=== PATIENT | male | born 1945 | race Caucasian/White ===

== ENCOUNTER 2022-10-18 07:34 | Outpatient (CLI) | payer MEDICARE, BC, SELFPAY | END 2022-10-18 07:35 | disposition home or self-care (01) | LOC: NFLDREF 10-19 10:56 | PROVIDERS: PCP Internal Medicine; Referring Provider Internal Medicine; Visit Provider Internal Medicine | DX: E78.5 Hyperlipidemia, unspecified (principal); R73.03 Prediabetes; I10 Essential (primary) hypertension | CPT/HCPCS: 80048; 80061 ==

== ENCOUNTER 2022-12-20 12:48 | Outpatient (CLI) | payer MEDICARE, BC, SELFPAY | END 2022-12-20 12:49 | disposition home or self-care (01) | PROVIDERS: PCP Internal Medicine; Visit Provider Nurse Practitioner Family | DX: M25.561 Pain in right knee (principal); M25.461 Effusion, right knee | CPT/HCPCS: 84550; 86617 ==

== ENCOUNTER 2023-11-05 08:35 | Outpatient (CLI) | payer MEDICARE, BC, SELFPAY ==
--- OUTSIDE RECORDS SUMMARY | 2023-11-23 21:46 | XMS_ITS | Clinical Summary ---
Author Organization [email or web address] Address [place], [place] [address] Care Team Providers Care Drop Forger Helper Name Role Phone Amilcar Ralph MD Primary Care Provider Allergies No known active allergies Medications Medication Sig Dispensed Refills Start Date End Date Status multivitamin (MVI) tablet Take 1 tablet by mouth once daily. 0 07/11/2010 Active aspirin enteric coated 81 mg tablet Take 1 tablet by mouth once daily with a meal. 0 10/10/2011 Active Fish Oil-Ozark-3 Fatty Acids (OMEGA 3 FISH OIL) 684-1,200 mg capsule Take 2 capsules by mouth 3 times daily. 1000 mg TID 0 03/01/2015 Active brlhfhvt-lrmrtzbim-q examethasone (MAXITROL) 3.5mg/mL-10,000 unit/mL-0.1 % ophthalmic suspension Place 1 Drop into left eye 4 times daily. SHAKE WELL 5 mL 04/13/2016 Active prednisoLONE acetate 1% ophthalmic (ECONOPRED PLUS, PRED FORTE, OMNIPRED) suspension Begin after Mike/Poly/Dex is gone. 1 drop in left eye 4x/day x 1 wk then 3x/day x 1 wk then 2x/day x 1 wk then 1x/day x 1 wk. SHAKE WELL 10 mL 04/13/2016 Active ibuprofen (ADVIL; MOTRIN) 600 mg tablet Take 1 tablet by mouth every 6 hours if needed for Pain. Take with food. 20 tablet 04/13/2016 Active omega 6-cvv-yzr-fish oil (FISH OIL) 100-160-1,000 mg cap Take 1,000 mg by mouth. 01/18/2016 Active Active Problems Problem Noted Date Diagnosed Date Dizziness and giddiness 07/03/2011 Overview: Per patient, 2 dibilitating episodes within the last 20 years + brief vertigo with quick head movements, difficulty with pitching forward Sensorineural hearing loss, bilateral 06/29/2011 EBCT, abnormal - 06/20/10 07/11/2010 Overview: - 06/20/10:Coronary calcium score 316.9, 70th percentile -07/24/10: Stress echocardiogram, negative for ischemia. Hyperlipidemia Hypertension History of tobacco use Overview: Approximately 6 yrs, quit in 1970 Family history of ischemic heart disease Overview: Father form MS at age 68 Prostate cancer Overview: S/pa prostatectomy, 2004 Immunizations Name Administration Dates Next Due Zoster (Zostavax-ZVL, live) 03/28/2009 Family History Medical History Relation Name Comments Heart Disease Father at age 68 of MS Heart Disease Maternal Grandfather heart attack, ? age Heart Disease Maternal Uncle heart attack in his 70's Cancer Mother at age 59 lung cancer, possible primary melanoma Cancer Son 06/27 s/p H odgkin's lymphoma and ARDS Relation Name Status Comments Father Maternal Grandfather Maternal Uncle Mother Son Social History Tobacco Use Types Packs/Day Years Used Date Smoking Tobacco: Former Cigarettes Q uit: 06/17/1970 Smokeless Tobacco: Never Alcohol Use Standard Drinks/Week Comments Yes 0 (1 standard drink = 0.6 oz pur e alcohol) red wine, no more than 1 daily Sex and Gender Information Value Date Recorded Sex Assigned at Not on file Gender Identity Not on file Sexual Orientation Not on file Obstetrics History Last Filed Vital Signs Vital Sign Reading Time Taken Comments Blood Pressure 145/77 06/11/2018 7:58 AM DELIVERY TABLE OPERATOR Pulse 59 06/11/2018 7:58 AM DELIVERY TABLE OPERATOR Temperature 36.8 ??C (98.3 ??F) 06/11/2018 7:58 AM CS T Respiratory Rate 14 05/21/2016 9:45 AM DELIVERY TABLE OPERATOR Oxygen Saturation 97% 06/11/2018 7:58 AM DELIVERY TABLE OPERATOR Inhaled Oxygen Concentration - - Weight 79.1 kg (174 lb 6.4 oz) 06/11/2018 7:58 A M DELIVERY TABLE OPERATOR Height 175.3 cm (5' 9) 05/06/2018 2:23 PM DELIVERY TABLE OPERATOR Body Mass Index 25.75 05/06/2018 2:23 PM DELIVERY TABLE OPERATOR Plan of Treatment Health Maintenance Due Date Last Done Comments Tdap 1957 Depression screening for age 12+ 1958 Hepatitis C screening for age 18-79 1964 Tetanus booster 1966 Zoster (shingles) series for age 50+ (2 of 3) 05/23/20 09 03/28/2009 Pneumococcal series for age 65+ (1 of 1 - PCV) 012 BMI (ht and wt on same day) for age 18+ 05/06/2019 1 07/06/2017 COVID-19 vaccine series (2022- season) 3 Influenza for age 65+ 02/16/2024 Advance Directives * Full Code (Latest Code Status on File) Date Activated Date Inactivated Comments 05/21/2016 7:33 AM 05/21/2016 12:00 PM * Full Code Date Activated Date Inactivated Comments 04/13/2016 6:07 AM 04/13/2016 10:29 AM Care Teams Drop Forger Helper Relationship Specialty Start Date End Date Amilcar Ralph MD PCP - General Internal Medicine 04/09/16
--- OUTSIDE RECORDS SUMMARY | 2023-11-23 21:46 | XMS_ITS | Encounter Summary ---
Author Organization [facility] Address [address] [place] [address] Care Team Providers Care Polishing Machine Tender Name Role Phone Elsewhere, Pcp Primary Care Provider Unavailabl e Reason for Visit * Reason Onset Date Comments Pre-visit Intake 10/09/2023 Encounter Details Date Type Department Care Team (Latest Contact Info) Description 10/09/2023 8:30 AM CDT Clinical Communication Virtual Review in [place], [place] [address] [place] [address] Pre-visit Intake Social History Tobacco Use Types Packs/Day Years Used Date Smoking Tobacco: Former Cigarettes Smokeless Tobacco: Never Tobacco Cessation:Counseling Given: Not Answered Humiliation, Afraid, Rape, and Kick questionnair e Answer Date Recorded Within the last year, have y ou been afraid of your partner or ex-partner? No 02/13/2022 Within the last year, have y ou been humiliated or emotionally abused in other ways by your partner or ex-partner? No Within the last year, have y ou been kicked, hit, slapped, or otherwise physically hurt by your partner or ex-partner? No 02/13/2022 Within the last year, have y ou been raped or forced to have any kind of sexual activity by your partner or ex-partner? No 02/13/2022 Social Connection and Isolat ion Panel [NHANES] Answer Date Recorded In a typical week, how many times do you talk on the phone with family, friends, or neighbors? More than three times a week 02/13/2022 How often do you get togethe r with friends or relatives? More than three times a week 02/13/2022 How often do you attend chur or mandaeism services? 1 to 4 times per year 02/13/2022 Do you belong to any clubs o r organizations such as yarsanism groups, unions, fraternal or athletic groups, or school groups? Yes 02/13/2022 How often do you attend meet ings of the clubs or organizations you belong to? More than 4 times per year 02/13/2022 Are you , , di vorced, , never , or living with a partner? 02/13/2022 AUDIT-C Answer Date Recorded Q1: How often do you have a drink containing alcohol? 4 or more times a week 02/13/2022 Q2: How many drinks containi ng alcohol do you have on a typical day when you are drinking? 1 or 2 2 Q3: How often do you have si x or more drinks on one occasion? Never 02/13/2022 Overall Financial Resource Strain (CARDIA) Answe r Date Recorded How hard is it for you to pa y for the very basics like food, housing, medical care, and heating? Not hard at all 02/13/2022 PHQ-2 Answer Date Recorded PHQ-2 Score 0 06/30/2019 [facility] Occupational Stress Questionnaire Answer Date Recorded Do you feel stress - tense, restless, nervous, or anxious, or unable to sleep at night because your mind is troubled all the time - these days? Not at all 02/13/2022 Exercise Vital Sign Answer Date Recorde d On average, how many days pe r week do you engage in moderate to strenuous exercise (like a brisk walk)? 6 days 02/13/2022 On average, how many minutes do you engage in exercise at this level? 90 min 02/13/2022 Hunger Vital Sign Answer Date Recorded Within the past 12 months, y ou worried that your food would run out before you got the money to buy more. Never true 02/14/20 22 Within the past 12 months, t he food you bought just didn't last and you didn't have money to get more. Never true 02/13/2022 PRAPARE - Transportation Answer Date Re corded In the past 12 months, has l ack of transportation kept you from medical appointments or from getting medications? No 01/17 In the past 12 months, has l ack of transportation kept you from meetings, work, or from getting things needed for daily living? No 02/13/2022 Housing Stability Vital Sign Answer Robert e Recorded In the last 12 months, was t here a time when you were not able to pay the mortgage or rent on time? No 02/13/2022 In the last 12 months, how many places have you lived? 2 02/13/2022 In the last 12 months, was t here a time when you did not have a steady place to sleep or slept in a alf (including now)? No 02/13/2022 Nutrition Answer Date Recorded On average, how many serving s of fruits and vegetables do you eat per day (serving size is equal to 1 cup or approximately the size of a tennis ball)? 4-5 02/13/2022 Dental Answer Date Recorded Dental: Regular Dentist Yes 02/14/20 Employment Answer Date Recorded Employment status Retired 02/13/2022 Education Answer Date Recorded What is the highest level of school you have completed or the highest degree you have received? Master's degree (e.g., MA, MS, [place], MEd, PERSONAL FITNESS TRAINER, JOSETTE) 02/18/2019 Sex and Gender Information Value Date Recorded Sex Assigned at Male 06/12/2017 8:10 AM WEATHER TEACHER Gender Identity Male 06/12/2017 8:10 AM WEATHER TEACHER Sexual Orientation Straight 06/12/2017 8: 10 AM WEATHER TEACHER documented as of this encounter Plan of Treatment Not on file documented as of this encounter Visit Diagnoses Not on filedocumented in this encounter Additional Health Concerns Assessment Noted Time PHQ-9 Depression Total Score: 0 06/12/20 17 8:11 AM WEATHER TEACHER documented as of this encounter Care Teams Polishing Machine Tender Relationship Specialty Start Date End Date Elsewhere, Pcp PCP - General Family Medicine 08/24/20 documented as of this encounter
--- OUTSIDE RECORDS SUMMARY | 2023-11-23 21:46 | XMS_ITS ---
Author Organization [facility] Address [address] [place] [address] Care Team Providers Care Cooling Room Attendant Name Role Phone Unavailable Unavailable Unavailable Surgery Details Not on file Complications Check Surgery Details section. Procedure Estimated Blood Loss Check Surgery Details section. Procedure Findings Check Surgery Details section. Procedure Specimens Taken Check Surgery Details section.
--- OUTSIDE RECORDS SUMMARY | 2023-11-23 21:46 | XMS_ITS | Referral Summary ---
Author Organization [facility] Address [address] [place] [id number] Care Team Providers Care Poultry Grader Name Role Phone Elsewhere, Pcp Primary Care Provider Unavailabl e Source Comments Patient records contain information from all sites at [facility]. For routine questions regarding patient records, call [phone] during business hours, M-F 8:00 AM - 5:00 PM Central Time. Record requests for emergency care only can be directed to [phone] at any time.[facility] Encounters Date Type Department Care Team Description 10/15/2023 1:33 PM CDT - 10/23/2023 9:17 AM CDT Hospital Encounter Department of Radiation Oncology in [place], [place] [address] [place] [phone] Robin Holt M.D., Ph.D. Primary Malignant Neoplasm Of Prostate (HCC) (Primary Dx); Rising Prostate Specific Antigen Following Treatment For Malignant Cancer Of Prostate 10/09/2023 8:30 AM CDT Clinical Communication Virtual Review in [place], [place] [address] [place] [address] Pre-visit Intake from Last 3 Months Allergies No known active allergies Medications Medication Sig Dispensed Refills Start Date End Date Status MULTIVITAMIN ORAL Take 1 tablet by mouth daily. 01/18/2016 Active chlorhexidine (for_PERIDEX) 0.12 % mouthwash Swish and spit 15 mL daily. 1 04/06/2017 Active peg 400-propylene glycol (SYSTANE) 0.4-0.3 % ophthalmic solution 1 drop 3 (three) times a day as needed for dry eyes. Active omega-3 fatty acids-fish oil 684-1,200 mg capsule,delayed release(DR/EC) Take 2 capsules by mouth daily. 03/01/2015 Active niacinamide 500 mg tablet Take 500 mg by mouth 2 (two) times a day with meals. Active acetaminophen (TYLENOL) 500 mg capsule Take 2 capsules (1,000 mg total) by mouth every 6 (six) hours as needed for pain. Take every 6 hours until no longer needing opioid medications then wean 100 capsule 1 06/19/[address] aspirin [address] tablet Take 1 tablet (81 mg total) by mouth daily. 06/23/2019 Active atorvastatin (LIPITOR) 40 mg tablet TAKE ONE TABLET BY MOUTH AT BEDTIME 90 tablet 1 05/25/2020 Active losartan-hydroCHLO ROthiazide (HYZAAR) 100-12.5 mg per tablet Take 1 tablet by mouth daily. 90 tablet 08/26/2020 Active sildenafiL (VIAGRA) 50 mg tablet Take 1 tablet (50 mg total) by mouth daily as needed for erectile dysfunction (Max: One per day. Take one to two hours before anticipated sexual activity.). 18 tablet 11 02/13/2022 Active loratadine (CLARITIN) 10 mg tablet Take 10 mg by mouth daily. 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 Immunizations Name Administration Dates Next Due HZV (ZOSTAVAX) 03/28/2016,03/28/2009 Influenza, Unspecified 03/27/2016 PCV13 12/20/2014 PPSV23 2012 SARS-COV-2 (COVID-19) - PFIZ ER BIVALENT TS(Discontinued)(12 YEARS OR OLDER) 03/02/2022 SARS-COV-2 (COVID-19) - PFIZ ER TS(Discontinued)(12 years or older) 10/17/2021 Tdap 01/18/2016 influenza high dose (65 years or older) (PF) 07/2018,04/02/2017 influenza vaccine quad (FLUZ ONE/FLUARIX) (6 months and older)(PF) 04/02/2018 Social History Tobacco Use Types Packs/Day Years Used Date Smoking Tobacco: Former Cigarettes Smokeless Tobacco: Never Tobacco Cessation:Counseling Given: Not Answered [facility] Utilities Answer Date Recorded In the past 12 months has e auctionPAL, Delta [employer], [employer], or water [employer] threatened to shut off services in your home? No 10/11/2023 Humiliation, Afraid, Rape, and Kick questionnair e [...] week 02/13/2022 How often do you attend [facility] or adventism services? 1 to 4 times per year 02/13/2022 Do you belong to any clubs o r organizations such as temple groups, unions, fraternal or athletic groups, or [...] Answer Date Recorded PHQ-2 Score 0 06/30/2019 [facility] - Occupational Stress Questionnaire Answer Date Recorded [...] exercise (like a brisk walk)? 6 days 10/11/2023 On average, how many minutes do you engage in exercise at this level? 60 min 10/11/2023 Hunger Vital Sign Answer Date Recorded Within the past 12 months, y ou worried that your food would run out before you got the money to buy more. Never true 10/11/19 24 Within the past 12 months, t he food you bought just didn't last and you didn't have money to get more. Never true 10/11/2023 PRAPARE - Transportation Answer Date Re corded In the past 12 months, has l ack of transportation kept you from medical appointments or from getting medications? No 09/16 In the past 12 months, has l ack of transportation kept you from meetings, work, or from getting things needed for daily living? No 10/11/2023 Nutrition Answer Date Recorded On average, how many serving s of fruits and vegetables do you eat per day (serving size is equal to 1 cup or approximately the size of a tennis ball)? 3-5 10/11/2023 Dental Answer Date Recorded Dental: Regular Dentist Yes 02/14/20 Employment Answer Date Recorded Employment status Retired 10/11/2023 Housing Stability Answer Date Recorded What is your living situation today? I have a [facility] place to live 10/11/2023 Education Answer Date Recorded What is the highest level of school you have completed or the highest degree you have received? Master's degree (e.g., MA, MS, Loida, MEd, TITLE EXAMINER, JOSETTE) 02/18/2019 Sex and Gender Information Value Date Recorded Sex Assigned at Male 06/12/2017 8:10 AM SORTER PACKER Gender Identity Male 06/12/2017 8:10 AM SORTER PACKER Sexual Orientation Straight 06/12/2017 8: 10 AM SORTER PACKER Last Filed Vital Signs Vital Sign Reading Time Taken Comments Blood Pressure 136/74 06/30/2019 9:46 AM SORTER PACKER Pulse 64 06/30/2019 9:41 AM SORTER PACKER Temperature 36.1 ??C (97 ??F) 06/30/2019 9:41 AM SORTER PACKER Respiratory Rate 17 06/23/2019 11:2 6 AM SORTER PACKER Oxygen Saturation 95% 06/23/2019 11: 26 AM SORTER PACKER Inhaled Oxygen Concentration - - Weight 75.2 kg (165 lb 12.8 oz) 10/15/2023 1:49 PM CDT Height 175.3 cm (5' 9) 02/02/2020 8:31 AM CDT Body Mass Index 24.48 02/02/2020 8:31 AM CDT Plan of Treatment Not on file Medical Devices Implanted Type Area Real Estate Sales Agent Device Identifier Shelf Expiration Date Model / Serial / Lot Hardware E.G. Pins/Screws/ Rods Hardware e.g. pins/screws /rods Right: Tibia Hardware E.G. Pins/Screws/ Rods Hardware e.g. pins/screws /rods Prostate Description:Prostate clips Misc Other Misc Other Mouth Description:Dental Ocular Lens Ocular Lens Bilateral: Eye Stnt Uret Inl [id number] - [id number] Implanted:Qt y: 1 on 06/19/2019 by Emigdio Burden M.D. at [facility] Ureteral Stent Right: Ureter C.R.Bard [id number] 11/26/2022 [id number] / / [id number] Procedures Procedure Name Priority Date/Time Associated Diagnosis Comments TESTOSTERONE, TOTAL BY MASS SPECROMETRY, S Routine 10/15/2023 11:03 AM CDT Primary Malignant Neoplasm Of Prostate (HCC) PROSTATE-SPECIFIC AG (PSA) DIAGNOSTIC, S Routine 10/15/2023 11:03 AM CDT Primary Malignant Neoplasm Of Prostate (HCC) CREATININE, POCT, B Routine 02/02/2020 8 :44 AM CDT BASIC METABOLIC PANEL, S/P Routine 06/22/2019 9:12 PM SORTER PACKER from Last 3 Months or Most Recently Relevant to Health Maintenance Results * Testosterone, Total by Mass Spectrometry, Serum (10/15/2023 11:03 AM CDT) Pathologist [facility] Testosterone, Total by Mass Spectrometry, Serum 523 240 - 950 ng/dL 10/18/2023 12:34 PM CDT [facility] Comment: ----ADDITIONAL INFORMATION---- Testing performed by Liquid Chromatography-Tandem Mass Spectrometry (LC-MS/MS). This test was developed and its performance characteristics determined by [facility] in a manner consistent with CLIA requirements. This test has not been cleared or approved by the U.S. Food and Drug Administration. Blood (Blood, Venous) 10/15/2023 11:03 AM CDT 10/15/2023 1:57 PM CDT Christy Boateng APRN CChayaNChayaPChaya LAB BLOOD N ON ADD-ON [facility] [address] [place] [address] [facility] [address] [place] [address] [place] [address] * PSA (Prostate-Specific Antigen), Diagnostic (10/15/2023 11:03 AM CDT) [facility] Prostate-Specific Ag <0.10 <=6.5 ng/mL 10/15/2023 12:14 PM CDT DTL Comment: ----ADDITIONAL INFORMATION---- The testing method is an electrochemiluminescence assay manufactured by [employer] and performed on the Modular or Wally system. Values obtained with different assay methods or kits may be different and cannot be used interchangeably. Test results cannot be interpreted as absolute evidence for the presence or absence of malignant disease. Blood (Blood, Venous) 10/15/2023 11:03 AM CDT 10/15/2023 11:39 AM CDT Ty Ann APRNNEze. LAB BLOOD A DD-ON Performing Organization Address City/[facility] Co de Phone Number [facility] [address] DTL [facility] [address] [place] [address] * Creatinine, POCT (02/02/2020 8:44 AM CDT) Pathologist [facility] Creatinine, POCT, B 0.9 0.7 - 1.4 mg/dL 02/02/2020 8:48 AM CDT PCDT Comment: ----ADDITIONAL INFORMATION---- Performed at the Point of Care Blood 02/02/2020 8:44 AM CDT 02/02/2020 8:48 AM CDT Unknown Provider LAB POCT ORDERABLES - DEVICE Performing Organization Address [facility] de Phone Number [facility] PERFORMING LABS [address] PCDT [facility] [address] [place] [address] * (ABNORMAL) BMP (Basic Metabolic Panel) (06/22/2019 9:12 PM SORTER PACKER) [facility] Potassium, S 3.9 3.6 - 5.2 mmol/L 06/22/2019 10:33 PM SORTER PACKER DTL Sodium, S 139 135 - 145 mmol/L 06/22/2019 10:33 PM SORTER PACKER DTL Chloride, S 102 98 - 107 mmol/L 06/22/2019 10:33 PM SORTER PACKER DTL Bicarbonate, S 26 22 - 29 mmol/L 06/22/2019 10:33 PM SORTER PACKER DTL Anion Gap 11 7 - 15 06/22/2019 10:33 PM SORTER PACKER DTL BUN (Blood Urea Nitrogen), S 17 8 - 24 mg/dL 06/22/2019 10:33 PM SORTER PACKER DTL Creatinine 0.86 0.74 - 1.35 mg/dL 06/22/2019 10:33 PM SORTER PACKER DTL eGFR-Non Black/ 87 >=60 mL/min/BSA 06/22/2019 10:33 PM SORTER PACKER DTL Comment: ----ADDITIONAL INFORMATION---- Estimated GFR calculated using the 2009 CKD_EPI creatinine equation. eGFR-Black/Afri can Moroccan >90 >=60 mL/min/BSA 06/22/2019 10:33 PM SORTER PACKER DTL Comment: ----ADDITIONAL INFORMATION---- Estimated GFR calculated using the 2009 CKD_EPI creatinine equation. Calcium, Total, S 8.9 8.8 - 10.2 mg/dL 06/22/2019 10:33 PM SORTER PACKER DTL Glucose, S 193(H) 70 - 140 mg/dL 06/22/2019 10:33 PM SORTER PACKER DTL Blood (Blood, Venous) 06/22/2019 9:12 PM SORTER PACKER 06/22/2019 9:38 PM SORTER PACKER Radha Aleman M.D. LAB BLOOD ADD- ON [facility] [address] [place] [address], [facility] [address] [place] [address] from Last 3 Months or Most Recently Relevant to Health Maintenance Advance Directives For more information, please contact: [phone] Documents on File Type Date Recorded Patient Treasury Agent Expl anation Advance Directives 06/07/2021 9:49 AM Christy Bear HCPOA/ADVOCATE/AGENT/R EPRESENTATIVE/SURROGAT E Healthcare Agents on File Name Relationship Healthcare Agent Relationship Communication Christy Harrell Spouse Health Care Agent [phone] (Home) Michelle Bear Other First Altern ate Health Care Agent Care Teams Poultry Grader Relationship Specialty Start Date End Date Elsewhere, Pcp PCP - General Family Medicine 08/24/20
--- OUTSIDE RECORDS SUMMARY | 2023-11-23 21:46 | XMS_ITS ---
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 Past Plans No past plan information found. Radiation Treatments * No radiation treatments are documented for this patient in [facility]. Treatments may have been administered in another system. Lifetime Dose Tracking * Chemical Lifetime Dose Automatic Entry Manual Entr y Radiation 12.8 mGy 12.8 mGy 0 mGy Fluoro Time 0.2 minutes 0.2 minutes 0 minutes
--- OUTSIDE RECORDS SUMMARY | 2023-11-23 21:46 | XMS_ITS | Encounter Summary ---
Author Organization [facility] Address [address] [place] [address] Care Team Providers Care Rn Primary Care Name Role Phone Elsewhere, Pcp Primary Care Provider Unavailabl e Reason for Referral * Outpatient (Routine) - Authorized Specialty Diagnoses / Procedures Referred By Contac t Referred To Contact Radiation Oncology Christy Boateng APRN, C.N.P. [address] [place] [address] [facility] Referral ID Status Reason Start Date Expiration Date V isits Requested Visits Authorized [id number] Authorized 10/15/2023 04/15/2025 1 1 Scheduling Instructions Jonathon * Outpatient (Routine) - Closed Specialty Diagnoses / Procedures Referred By Contac t Referred To Contact Radiation Oncology Christy Boateng APRN, C.N.P. [address] [place] [phone] [facility] Referral ID Status Reason Start Date Expiration Date Visits Re quested Visits Authorized [id number] Closed 02/13/2022 02/12/2025 1 1 Scheduling Instructions Jonathon Reason for Visit * Outpatient (Routine) - Closed Specialty Diagnoses / Procedures Referred By Contac t Referred To Contact Radiation Oncology Christy Boateng APRN C.NChayaP. [address] [place] [address] [facility] Referral ID Status Reason Start Date Expiration Date Visits Re quested Visits Authorized [id number] Closed 02/13/2022 02/12/2025 1 1 Encounter Details Date Type Department Care Team (Latest Contact Info) Description 10/15/2023 1:33 PM CDT - 10/23/2023 9:17 AM CDT Hospital Encounter Department of Radiation Oncology in [place], [place] [address] [place] [phone] Robin Holt M.D., Ph.D. [address] [place] [phone] Primary Malignant Neoplasm Of Prostate (HCC) (Primary Dx); Rising Prostate Specific Antigen Following Treatment For Malignant Cancer Of Prostate Social History Tobacco Use Types Packs/Day Years Used Date Smoking Tobacco: Former Cigarettes Smokeless Tobacco: Never [facility] Open Lendingities Answer Date Recorded In the past 12 months has [facility] electric, gas, oil, or water [employer] threatened to shut off services in your [...] 02/13/2022 How often do you attend chur ch or cheondoism services? 1 to 4 times per year 02/13/2022 Do you belong to any clubs o r organizations such as sikh groups, unions, fraternal or athletic groups, or [...] when you are drinking? 1 or 2 Q3: How often do you have si x or more drinks on one occasion? Never 02/13/2022 Overall Financial Resource Strain (CARDIA) Answe r Date Recorded How hard is it for you to pa y for the very basics like food, housing, medical care, and heating? Not hard at all 02/13/2022 PHQ-2 Answer Date Recorded PHQ-2 Score 0 06/30/2019 [facility] Occupat ional [facility] - Occupational Stress Questionnaire Answer Date [...] your living situation today? I have a [facility] place to live 10/11/2023 Education Answer Date Recorded What is the highest level of school you have completed or the highest degree you have received? Master's degree (e.g., MA, MS, [place], MEd, CLINICAL SOCIAL WORK AIDE, JOSETTE) 02/18/2019 Sex and Gender Information Value Date Recorded Sex Assigned at Male 06/12/2017 8:10 AM DIRECTOR DECISION SUPPORT Gender Identity Male 06/12/2017 8:10 AM DIRECTOR DECISION SUPPORT Sexual Orientation Straight 06/12/2017 8: 10 AM DIRECTOR DECISION SUPPORT documented as of this encounter Last Filed Vital Signs Vital Sign Reading Time Taken Comments Blood Pressure - - Pulse - - Temperature - - Respiratory Rate - - Oxygen Saturation - - Inhaled Oxygen Concentration - - Weight 75.2 kg (165 lb 12.8 oz) 10/15/2023 1:49 PM CDT Height - - Body Mass Index 24.48 02/02/2020 8:31 AM CDT documented in this encounter Medications at Time of Discharge Medication Sig Dispensed Refills Start Date End Date acetaminophen (TYLENOL) 500 mg capsule Take 2 capsules (1,000 mg total) by mouth every 6 (six) hours as needed for pain. Take every 6 hours until no longer needing opioid medications then wean 100 capsule 1 06/19/[address] tablet Take 1 tablet (81 mg total) by mouth daily. 06/23/2019 atorvastatin (LIPITOR) 40 mg tablet TAKE ONE TABLET BY MOUTH AT BEDTIME 90 tablet 1 05/25/2020 chlorhexidine (for_PERIDEX) 0.12 % mouthwash Swish and spit 15 mL daily. 1 04/06/2017 loratadine (CLARITIN) 10 mg tablet Take 10 mg by mouth daily. losartan-hydroCHLOROt hiazide (HYZAAR) 100-12.5 mg per tablet Take 1 tablet by mouth daily. 90 tablet 08/26/2020 MULTIVITAMIN ORAL Take 1 tablet by mouth daily. 01/18/2016 niacinamide 500 mg tablet Take 500 mg by mouth 2 (two) times a day with meals. omega-3 fatty acids-fish oil 684-1,200 mg capsule,delayed release(DR/EC) Take 2 capsules by mouth daily. 03/01/2015 peg 400-propylene glycol (SYSTANE) 0.4-0.3 % ophthalmic solution 1 drop 3 (three) times a day as needed for dry eyes. sildenafiL (VIAGRA) 50 mg tablet Take 1 tablet (50 mg total) by mouth daily as needed for erectile dysfunction (Max: One per day. Take one to two hours before anticipated sexual activity.). 18 tablet 11 02/13/2022 documented as of this encounter Progress Notes * Christy Boateng, COLIN, C.N.P. - 10/15/2023 2:00 PM CDT SUBJECTIVE CHIEF COMPLAINT/REASON FOR VISIT Follow-up visit. HISTORY OF PRESENT ILLNESS 1. Primary Malignant Neoplasm Of Prostate (HCC) 2. Rising Prostate Specific Antigen Following Treatment For Malignant Cancer Of Prostate Mr. John Vang is a 77 y.o. male from [facility] [phone], who presents today in follow-up. He underwent radical retropubic prostatectomy (done elsewhere) on March 14, 2004. Pathology revealed [place] 3 + 4, involving both lobes of the prostate. Perineural invasion was identified. Lymphovascular invasion was absent. The tumor was confined to the prostate with no involvement of extraprostatic soft tissues or seminal vesicles. The surgical margins were negative for tumor. Multiple (1 left, 4 right) pelvic lymph nodes were negative for tumor, pT2c, N0, MX, R0. He then underwent salvage external beam radiation therapy to the prostate fossa, completed on July 15, 2007, 36 fractions, 6480 cGy, under the direction of Dr. Holt. Post-radiation treatment, hisPSA went to undetectable levels on November 11, 2008, and remained so until March 31, 2014, when it became detectable at 0.11 ng/mL and then slowly chrystal. PSA on November 12, 2017, was 0.81 ng/mL. PSA on February 06, 2019, was 1.7 ng/mL; testosterone 408 ng/dL. PET Choline scan on February 06, 2019,revealed choline avid nodular recurrence of disease associated with some surgical clips in the right seminal vesicle resection bed. Two small indeterminate foci of activity in the left supraclavicular fossa; recommend diagnostic contrast-enhanced chest CT for further evaluation. Otherwise, no additional findings specific for choline avid recurrent or metastatic disease. PSMA scan on February 17, 2019, revealed prominent focal activity present in the right seminal vesicle. Faint uptake by the left iliac crest. Biopsies of the prostate bed on March 20, 2019, was negative. Biopsy of the right seminal vesicle on April 30, 2019, revealed Pato 4 + 4, involving 10% of 3 of 5 cores. He underwent a cystourethroscopy and right ureteral stent placement on June 19, 2019. He underwent cryoablation on June 30, 2019, under the direction of Dr. Lovett. PSA on October 05, 2019, was <0.10 ng/mL. PSA on February 02, 2020, was <0.10 ng/mL. MRI prostate on February 02, 2020, revealed low suspicionfor local recurrence. No definite residual/recurrent tumor in the right seminal vesicle ablation zone. A tiny amount of residual seminal vesicle remnant may exist adjacent to the ablation. Negative for lymph node metastasis. Low suspicion for bone metastasis. Stable area of enhancement in the left iliac crest. His PSA then remained undetectable. PSA on October 15, 2023, was <0.10 ng/mL. REVIEW OF SYSTEMS The patient denies dysuria, hematuria, urgency, or urinary incontinence. Occasional urinary hesitancy. Experiences nocturia times 0-1. Denies rectal bleeding, pain with bowel movements, or bowel incontinence. He has 2-3 BMs per day. Does have a history of hemorrhoids. Denies having inflammatory bowel disease. OBJECTIVE PHYSICAL EXAMINATION Wt 75.2 kg Pain: 0/10. General: Sitting comfortably in exam room; in no acute distress. Lungs: Normal work of breathing on room air. Neuro: Alert and oriented x 3. Psych: Appropriate mood and affect. ASSESSMENT / PLAN 1. Primary Malignant Neoplasm Of Prostate (HCC) 2. Rising Prostate Specific Antigen Following Treatment For Malignant Cancer Of Prostate The patient was seen in follow-up today, with Dr. Robin Holt. Reviewed and discussed recent test results with the patient. We will continue monitoring his PSA and arrange for PSA recheck at [facility] every six months with follow-up in two years. All questions were answered to the patient's satisfaction. The patient acknowledges an understanding of the information provided and agrees with the plan of care. I personally spent a total of 25 minutes in care of the patient today. Time includes both veb-yrei-to-face and wnnm-rh-neii patient care. Associated attestation - Robin Holt M.D., Ph.D. - 10/23/2023 8:51 AM CDT This patient was seen in conjunction with Christy Boateng APRN C.N.P.. I agree with the documentation, findings, and recommendations in the associated note. I spent 10 minutes face to face and non-face to face caring for the patient today. documented in this encounter Plan of Treatment Scheduled Orders Name Type Priority Associated Diagnoses Orde r Schedule PSA (Prostate-Specific Antigen), Diagnostic Lab Routine Primary Malignant Neoplasm Of Prostate (HCC) Rising Prostate Specific Antigen Following Treatment For Malignant Cancer Of Prostate Expected: 04/15/2025, Expires: 11/15/2027 PSA (Prostate-Specific Antigen), Diagnostic Lab Routine Primary Malignant Neoplasm Of Prostate (HCC) Rising Prostate Specific Antigen Following Treatment For Malignant Cancer Of Prostate Expected: 10/14/2024, Expires: 01/13/2025 PSA (Prostate-Specific Antigen), Diagnostic Lab Routine Primary Malignant Neoplasm Of Prostate (HCC) Rising Prostate Specific Antigen Following Treatment For Malignant Cancer Of Prostate Expected: 10/14/2025, Expires: 11/03/2026 Scheduled Referrals Name Type Priority Associated Diagnoses Order Schedule Radiation Oncology office visit (clinic) Outpatient Referral Routine Once for 1 Occurrences starting 10/15/2023 until 10/15/2023 Radiation Oncology office visit (clinic) Outpatient Referral Routine Expected: (Approximate), Expires: 11/10/2026 documented as of this encounter Visit Diagnoses Diagnosis Primary Malignant Neoplasm Of Prostate (HCC)- Primary Rising Prostate Specific Antigen Following Treatment For Malignant Cancer Of Prostate documented in this encounter Additional Health Concerns Assessment Noted Time PHQ-9 Depression Total Score: 0 06/12/20 17 8:11 AM DIRECTOR DECISION SUPPORT documented as of this encounter Care Teams Rn Primary Care Relationship Specialty Start Date End Date Elsewhere, Pcp PCP - General Family Medicine 08/24/20 documented as of this encounter
--- OUTSIDE RECORDS SUMMARY | 2023-11-23 21:46 | XMS_ITS | Clinical Summary ---
Author Organization [facility] Address [address] [place] [address] Care Team Providers Care Can Handler Name Role Phone Elsewhere, Pcp Primary Care Provider Unavailabl e Source Comments Patient records contain information from all sites at [facility]. For routine questions regarding patient records, call [phone] during business hours, M-F 8:00 AM - 5:00 PM Central Time. Record requests for emergency care only can be directed to [phone] at any time.[facility] Allergies No known active allergies Medications Medication [...] Overview: Added automatically from request for surgery [id number] Hypertension 01/18/2016 Overview: Hypertension (HTN) NOS Malignant Neoplasm Of Prosta te Specific Antigen Chemical Recurrence 05/04/2008 Encounters Date Type Department Care Team Description 10/15/2023 1:33 PM CDT - 10/23/2023 9:17 AM CDT Hospital Encounter Department of Radiation Oncology in [address] [address] Robin Holt M.D., Ph.D. Primary Malignant Neoplasm Of Prostate (HCC) (Primary Dx); Rising Prostate Specific Antigen Following Treatment For Malignant Cancer Of Prostate 10/09/2023 8:30 AM CDT Clinical Communication Virtual Review in [address] [address] Pre-visit Intake from Last 3 Months Immunizations Name Administration Dates Next Due HZV (ZOSTAVAX) 03/28/2016,03/28/2009 Influenza, Unspecified 03/27/2016 PCV13 12/20/2014 PPSV23 2012 SARS-COV-2 (COVID-19) - PFIZ ER BIVALENT TS(Discontinued)(12 YEARS OR OLDER) 03/02/2022 SARS-COV-2 (COVID-19) - PFIZ ER TS(Discontinued)(12 years or older) 10/17/2021 Tdap 01/18/2016 influenza high dose (65 years or older) (PF) 07/2018,04/02/2017 influenza vaccine quad (FLUZ ONE/FLUARIX) (6 months and older)(PF) 04/02/2018 Family History Medical History Relation Name Comments Alcoholic Father Heart attack Father Hypertension Father Tobacco abuse Father Alcohol abuse Mother Lung cancer Mother Melanoma Mother Tobacco abuse Mother Genetic Disorder Sister 1 Sosa platelet di sorder Fibromyalgia Sister 2 [place] Colon cancer Neg Hx Prostate cancer Neg Hx Relation Name Status Comments Father (Age 68) from a hea rt attack Mother (Age 69) Sister 1 Sosa Alive Sister 2 [place] Alive Social History Tobacco Use Types Packs/Day Years Used Date Smoking Tobacco: Former Cigarettes Smokeless Tobacco: Never Tobacco Cessation:Counseling Given: Not Answered [facility] [employer] Answer Date Recorded In the past 12 months has e [employer] gas, oil, or water [employer] threatened to shut off services in your [...] often do you attend chur ch or protestant services? 1 to 4 times per year 02/13/2022 Do you belong to any clubs o r organizations such as judaism groups, unions, fraternal or athletic groups, or [...] Answer Date Recorded PHQ-2 Score 0 06/30/2019 [facility] of Occupat ional Health - Occupational Stress Questionnaire Answer Date [...] your living situation today? I have a [facility] place to live 10/11/2023 Education Answer Date Recorded What is the highest level of school you have completed or the highest degree you have received? Master's degree (e.g., MA, MS, [place], MEd, LOOM REPAIRER, JOSETTE) 02/18/2019 Sex and Gender Information Value Date Recorded Sex Assigned at Male 06/12/2017 8:10 AM PAPER CARRIER Gender Identity Male 06/12/2017 8:10 AM PAPER CARRIER Sexual Orientation Straight 06/12/2017 8: 10 AM PAPER CARRIER Last Filed Vital Signs Vital Sign Reading Time Taken Comments Blood Pressure 136/74 06/30/2019 9:46 AM PAPER CARRIER Pulse 64 06/30/2019 9:41 AM PAPER CARRIER Temperature 36.1 ??C (97 ??F) 06/30/2019 9:41 AM PAPER CARRIER Respiratory Rate 17 06/23/2019 11:2 6 AM PAPER CARRIER Oxygen Saturation 95% 06/23/2019 11: 26 AM PAPER CARRIER Inhaled Oxygen Concentration - - Weight 75.2 kg (165 lb 12.8 oz) 10/15/2023 1:49 PM CDT Height 175.3 cm (5' 9) 02/02/2020 8:31 AM CDT Body Mass Index 24.48 02/02/2020 8:31 AM CDT Plan of Treatment Health Maintenance Due Date Last Done Comments Hepatitis C Screening 1945 Office Visit for Blood Press ure Check / Re-check 1945 Potassium Level 06/22/2020 06/22/2019, 08/2018, 03/17/2018, Additional history exists Sodium Level 06/22/2020 06/22/2019, 08/2018, 03/17/2018, Additional history exists Creatinine Level (Kidney Fun ction Test) 02/01/2021 02/02/2020, 06/22/2019, 05/19/2019, Additional history exists Depression Screening (Annual PHQ-2) 06/17/2023 Fall Risk Screen (Annual) 06/17/2023 COVID-19 Vaccine (2022-2 4 season) 2023 03/16/2023, 03/02/2022, 10/17/2021, Additional history exists DTaP,Tdap,and Td Vaccines (2 - Td or Tdap) 01/17/2026 01/18/2016 Pneumococcal vaccine (65+ years) Completed 12/21/19 15, 2012 Colonoscopy Discontinued 05/21/2016 Colorectal Cancer Screening Discontinued Zoster Vaccines Completed 11/25/2020, 0412/2020, 03/28/2016, Additional history exists Influenza Vaccine Completed 03/12/2023, , 03/14/2021, Additional history exists CT Colonography Discontinued Cologuard Discontinued FIT Discontinued Medical Devices Implanted Type Area Surveying Crew Rodman Device Identifier Shelf Expiration Date Model / Serial / Lot Hardware E.G. Pins/Screws/ Rods Hardware e.g. pins/screws /rods Right: [employer]ia Hardware E.G. Pins/Screws/ Rods Hardware e.g. pins/screws /rods Prostate Description:Prostate clips Misc Other Misc Other Mouth Description:Dental Ocular Lens Ocular Lens Bilateral: Eye Stnt Uret Inl [id number] - [id number] Implanted:Qt y: 1 on 06/19/2019 by Emigdio Burden M.D. at [facility] Ureteral Stent Right: Ureter C.R.Bard [id number] 11/26/2022 [id number] / / [id number] Procedures Procedure Name Priority Date/Time Associated Diagnosis Comments TESTOSTERONE, TOTAL BY MASS SPECROMETRY, S Routine 10/15/2023 11:03 AM CDT Primary Malignant Neoplasm Of Prostate (HCC) PROSTATE-SPECIFIC AG (PSA) DIAGNOSTIC, S Routine 10/15/2023 11:03 AM CDT Primary Malignant Neoplasm Of Prostate (HCC) CREATININE, POCT, B Routine 02/02/2020 8 :44 AM CDT BASIC METABOLIC PANEL, S/P Routine 06/22/2019 9:12 PM PAPER CARRIER from Last 3 Months or Most Recently Relevant to Health Maintenance Results * Testosterone, Total by Mass Spectrometry, Serum (10/15/2023 11:03 AM CDT) Testosterone, Total by Mass Spectrometry, Serum 523 240 - 950 ng/dL 10/18/2023 12:34 PM CDT [facility] Comment: ----ADDITIONAL INFORMATION---- Testing performed by Liquid Chromatography-Tandem Mass Spectrometry (LC-MS/MS). This test was developed and its performance characteristics determined by [facility] in a manner consistent with CLIA requirements. This test has not been cleared or approved by the U.S. Food and Drug Administration. Blood (Blood, Venous) 10/15/2023 11:03 AM CDT 10/15/2023 1:57 PM CDT Christy Boateng APRN, C.N.P. LAB BLOOD N ON ADD-ON Performing Organization Address [facility]/ZIP Co de Phone Number [facility] [address] [place] [address] [facility] [address] [place] [address] [place] [address] * PSA (Prostate-Specific Antigen), Diagnostic (10/15/2023 11:03 AM CDT) Pathologist [facility] [place] Prostate-Specific Ag <0.10 <=6.5 ng/mL 10/15/2023 12:14 PM CDT DT Comment: ----ADDITIONAL INFORMATION---- The testing method is [...] 11:03 AM CDT 10/15/2023 11:39 AM CDT Christy Boateng APRN, C.N.P. LAB BLOOD A DD-ON [facility] [address] [place] [address], [place] DTL [facility] [address] [place] [address] * Creatinine, POCT (02/02/2020 8:44 AM CDT) Creatinine, POCT, B 0.9 0.7 - 1.4 mg/dL 02/02/2020 8:48 AM CDT PCDT Comment: ----ADDITIONAL INFORMATION---- Performed at the Point of Care Blood 02/02/2020 8:44 AM CDT 02/02/2020 8:48 AM CDT Unknown Provider LAB POCT ORDERABLES - DEVICE [facility] PERFORMING LABS [address] [place] [address], [facility] PCDT [facility] POC [address] [place] [address] * (ABNORMAL) BMP (Basic Metabolic Panel) (06/22/2019 9:12 PM PAPER CARRIER) Pathologist [facility] [place] Potassium, S 3.9 3.6 - 5.2 mmol/L 06/22/2019 10:33 PM PAPER CARRIER DTL Sodium, S 139 135 - 145 mmol/L 06/22/2019 10:33 PM PAPER CARRIER DTL Chloride, S 102 98 - 107 mmol/L 06/22/2019 10:33 PM PAPER CARRIER DTL Bicarbonate, S 26 22 - 29 mmol/L 06/22/2019 10:33 PM PAPER CARRIER DTL Anion Gap 11 7 - 15 06/22/2019 10:33 PM PAPER CARRIER DTL BUN (Blood Urea Nitrogen), S 17 8 - 24 mg/dL 06/22/2019 10:33 PM PAPER CARRIER DTL Creatinine 0.86 0.74 - 1.35 mg/dL 06/22/2019 10:33 PM PAPER CARRIER DTL eGFR-Non Black/ 87 >=60 mL/min/BSA 06/22/2019 10:33 PM PAPER CARRIER DTL Comment: ----ADDITIONAL INFORMATION---- Estimated GFR calculated using the 2009 CKD_EPI creatinine equation. eGFR-Black/Afri can British >90 >=60 mL/min/BSA 06/22/2019 10:33 PM PAPER CARRIER DTL Comment: ----ADDITIONAL INFORMATION---- Estimated GFR calculated using the 2009 CKD_EPI creatinine equation. Calcium, Total, S 8.9 8.8 - 10.2 mg/dL 06/22/2019 10:33 PM PAPER CARRIER DTL Glucose, S 193(H) 70 - 140 mg/dL 06/22/2019 10:33 PM PAPER CARRIER DTL Blood (Blood, Venous) 06/22/2019 9:12 PM PAPER CARRIER 06/22/2019 9:38 PM PAPER CARRIER Radha Aleman M.D. LAB BLOOD ADD- ON [facility] [address] [place] [address], [place] DTL [facility] [address] [place] [address] from Last 3 Months or Most Recently Relevant to Health Maintenance Advance Directives For more information, please contact: [phone] Documents on File Type Date Recorded Patient Tennis [employer] Manager Expl anation Advance Directives 06/07/2021 9:49 AM Christy Bear HCPOA/ADVOCATE/AGENT/R EPRESENTATIVE/SURROGAT E Healthcare Agents on File Name Relationship Healthcare Agent Relationship Communication Christy Harrell Spouse Health Care Agent [phone] (Home) Michelle Bear Other First Altern ate Health Care Agent Care Teams Can Handler Relationship Specialty Start Date End Date Elsewhere, Pcp PCP - General Family Medicine 08/24/20
== END 2023-11-05 08:36 | disposition home or self-care (01) ==
LOC: NFLDREF 11-23 21:43
PROVIDERS: PCP Internal Medicine; Referring Provider Internal Medicine; Visit Provider Internal Medicine
DX: I10 Essential (primary) hypertension (principal); E78.5 Hyperlipidemia, unspecified; R73.03 Prediabetes
CPT/HCPCS: 80048; 80061

== ENCOUNTER 2024-10-13 13:00 | Outpatient (RCR) | payer MEDICARE, BC, SELFPAY ==
--- NOTE | 2024-09-14 17:05 | PT.OPEX ---
[facility] PT [facility] Outpatient Eval Start: 09/14/24 07:31 Freq: Status: Active Protocol: Document 09/14/24 07:31 TEDDY (Rec: 09/14/24 16:51 TEDDY [id number]) E-signed By Christy Locke DPT Physical Therapy Outpatient Evaluation Insurance Information Recert Due Date 12/13/24 Insurance Name Medicare B Medical Diagnosis chronic thoracic back pain Treating Diagnosis L mid/upper back pain, L periscapular pain, L thoracic/ periscapular tightness/tension , L scap dyskinesia, L shoulder pain, impaired posture Subjective Subjective Patient reports chronic mid/ upper back soreness, increases some with activities. He stays active with swimming, rowing machine, golfing. Pain range 2-4/10. He reports hx of some L shoulder pain/ soreness issues but he does not want to have surgery on his L shoulder after the long recovery he had after his R shoulder surgery. States he had R shoulder surgery about 10 years ago, unable to recall what was repairs, states it wasn't a RCR. Patient reports hx of prostate cancer. He had a PET scan about 6 years ago and reports they mentioned some thoracic wedging noted in the imaging. Patient states he's had general chronic soreness in his mid/ upper thoracic area for years. Doesn't feel like it has been changing over the last several years, has been about 2-4/10 pain range, not getting better or worse. He is not needing pain meds. Hasn't been using ice/heat, hasn't tried any ointments/patches to the area. He reports hx of some LBP issues with prior PT and chiro care. Also reports hx of cervical stenosis but he is doing fine with managing his pain/sx. He is hoping to get some exercises to help loosen up the area and strengthen/support his spine. Date of Last Physician Visit 09/07/24 Current Work Status Retired Assessment Assessment/Impression Patient is a 78 year old male with L mid/upper back pain, L periscapular pain, L thoracic/ periscapular tightness/tension , L scap dyskinesia, L shoulder pain, impaired posture. Patient localizes his pain to L mid/upper thoracic spine. He is tight, tender with palpation L thoracic paraspinals, L rhomboids, L medial scap border. L scap is hypomobile. Patient reports hx of some L shoulder pain, feels he may compensation some of his L shoulder movement/ activities. Pain range 2-4/10 . Patient with impaired posture, rounded shoulders, fwd head. L shoulder, periscap muscle, upper trunk weakness noted with posture, scap position and hypomobility . Able to mobilize thoracic spine and scap this session. Initiated exercises this session. Tolerated well and patient will perform in his HEP. Patient would benefit from skilled PT for pain/sx management, improved thoracic mobility, improved L scap mobility, core/trunk/periscap strengthening/stabilization, and establishment of HEP. Plan of Care Rehabilitation Potential Good Physical Therapy Goals 1. Decrease mid/upper back/L periscap pain to less than/ equal to 3/10 with daily activities and with the progression of PT activities over the next 4-6 weeks. 2. Patient will be educated on posture/body mechanics and pain management strategies over the next 6-8 weeks for decreased stress on mid/upper back, decreased mid/upper back/L periscap pain, and improved L scap position/mobility. 3. Improve core/trunk/UBN/ periscap strength and posture over the next 8-10 weeks for improved posture, decreased stress on mid/upper back, decreased mid/upper back pain, improved L scap position /mobility and return to full activities without flare up of pain/sx. 4. Patient will be I with HEP within 10 weeks for progression toward above goals, ongoing self management of pain/sx, ongoing self improvements in core/trunk/UBN/periscap strength, posture/body mechanics, and for return to full daily/workout activities without flare up of pain/sx. Coordination/Communication With Referral Source Treatment Plan/Direct Interventions Manual Therapy,Therapeutic Exercises Frequency/Duration 1x/week Patient Will Be Discharged From Therapy Completion of LTG(s),Skills Plateau,Independent w/HEP, Independently Progressing Evaluation Billing Untimed Code Treatment Minutes 26 Complexity Moderate Certification Information Initial Certification Date 09/14/24 Ending Certification Date 12/13/24 Provider Signature Required Yes Provider Signature Shows Agreement With POC & Medical Necessity Physician NPI Number Write NPI# Here Physician Comment/Change : Physician Signature & Date Requested Please Sign/Date Here
== END 2025-02-10 23:59 | disposition home or self-care (01) ==
PROVIDERS: PCP Internal Medicine; Visit Provider Internal Medicine
DX: M54.6 Pain in thoracic spine (principal); G89.29 Other chronic pain; Z51.89 Encounter for other specified aftercare
CPT/HCPCS: 97110; 97140; 97162

== ENCOUNTER 2024-12-08 07:30 | Outpatient (CLI) | payer MEDICARE, BC, SELFPAY | END 2024-12-08 07:31 | disposition home or self-care (01) | LOC: NFLDREF 12-09 14:03 | PROVIDERS: PCP Internal Medicine; Referring Provider Internal Medicine; Visit Provider Internal Medicine | DX: E78.5 Hyperlipidemia, unspecified (principal); R73.03 Prediabetes; I10 Essential (primary) hypertension | CPT/HCPCS: 80048; 80061 ==